=== PATIENT | female | born 1945 | race Caucasian/White ===

== ENCOUNTER 2018-02-23 09:40 | Inpatient (IN) ==
[2018-02-23 10:51] VITALS: BMI 34.3
[2018-02-23] MEDS ORDERED: ATROPINE SULFATE PFS IVP PRN (11:36)
[2018-02-23] MEDS ORDERED: NITROSTAT SL PRN (11:36)
[2018-02-23] MEDS ORDERED: TYLENOL PO PRN (11:36)
[2018-02-23] MEDS ORDERED: MORPHINE 4 MG/ML VIAL IVP PRN (11:36)
[2018-02-23] MEDS ORDERED: VISTARIL INJ IM PRN (11:36)
[2018-02-23] MEDS ORDERED: TORADOL IVP PRN (11:42)
[2018-02-23] MEDS ORDERED: TORADOL IVP STA (11:42)
[2018-02-23] MEDS ORDERED: LASIX IVP STA (11:45)
[2018-02-23] MEDS: PROTONIX PO SCH ×2 (12:07→16:17)
[2018-02-23] MEDS: COZAAR PO SCH (12:07)
[2018-02-23] MEDS: K-DUR PO SCH (12:07)
[2018-02-23] MEDS ORDERED: ESZOPICLONE 2 MG PO PRN (12:50)
[2018-02-23] MEDS: ROCEPHIN 1 GM in SODIUM CHLORIDE 50 ML IV SCH (13:19)
--- NOTE | 2018-02-23 14:44 | DI ---
EXAM: Chest one view, frontal view only. HISTORY: Shortness of breath. Chest pain. COMPARISON: None available. FINDINGS: The heart size is at the upper limits of normal. There is no pulmonary vascular congestio n. The lungs are clear. No pleural effusion or pneumothorax is seen. No acute osseous abnormality is identified. IMPRESSION: No acute cardiopulmonary process.
[2018-02-23] MEDS: FLONASE NAS SCH (20:11)
[2018-02-23] MEDS ORDERED: ESZOPICLONE PO SCH (21:00)
[2018-02-23] MEDS ORDERED: LUNESTA PO PRN (21:00)
[2018-02-24] MEDS: PROTONIX PO SCH ×2 (05:52→16:59)
[2018-02-24] MEDS: LASIX IVP SCH (05:52)
[2018-02-24] MEDS: SYNTHROID PO SCH (05:53)
[2018-02-24] MEDS ORDERED: ASPIRIN EC PO SCH (08:00)
[2018-02-24] MEDS: FLONASE NAS SCH ×2 (08:25→20:06)
[2018-02-24] MEDS: LEXAPRO PO SCH (08:26)
[2018-02-24] MEDS: COZAAR PO SCH (08:26)
[2018-02-24] MEDS: TOPROL XL PO SCH (08:26)
[2018-02-24] MEDS: K-DUR PO SCH ×2 (08:26→16:59)
[2018-02-24] MEDS: ASPIRIN EC PO SCH (08:26)
[2018-02-24] MEDS ORDERED: BETAMETHASONE VALERATE 0.1% TP SCH (09:00)
[2018-02-24] MEDS ORDERED: CRESTOR PO SCH (09:00)
[2018-02-24] MEDS ORDERED: ASPIRIN PO SCH (09:00)
[2018-02-24] MEDS ORDERED: NON-FORMULARY MEDICATION (Rosuvastatin Calcium [Crestor] 1 TAB) PO SCH (09:00)
[2018-02-24] MEDS ORDERED: LASIX TAB PO SCH (09:00)
[2018-02-24] MEDS ORDERED: ZETIA PO SCH (09:00)
[2018-02-24] MEDS ORDERED: ESCITALOPRAM OXALATE PO SCH (09:00)
[2018-02-24] MEDS: ROCEPHIN 1 GM in SODIUM CHLORIDE 50 ML IV SCH (09:09)
[2018-02-24] MEDS ORDERED: AMBIEN PO PRN (12:51)
--- NOTE | 2018-02-24 12:52 | PCM.PROG ---
Attending Provider: ATTENDING PROVIDER: Dr. PORSCHE AGRAWAL This patient is seen with Cece Valadez, Nurse Practitioner. DATE OF SERVICE: 02/24/18 SUBJECTIVE: This 72 year old WHITE/ F was hospitalized 02/23/18. The patient is lying in bed, alert. She states she rested well. She is still very weak, short of breath with exertion. REVIEW OF SYSTEMS: CONSTITUTIONAL: No night sweats. No fatigue, malaise, lethargy. No fever or chills. HEENT: Eyes: No visual changes. No eye pain. No eye discharge. ENT: No runny nose. No epistaxis. No sinus pain. No odynophagia. No congestion. RESPIRATORY: Shortness of breath on exertion. No cough, no congestion. No hemoptysis. CARDIOVASCULAR: No angina symptoms. No CHF symptoms. No atypical chest pain for CAD. No palpitations. No orthopnea.. GASTROINTESTINAL: No abdominal pain. No nausea or vomiting. No diarrhea or constipation. No hematemesis. No hematochezia. GENITOURINARY: No urgency. No frequency. No dysuria. No hematuria. No obstructive symptoms. No discharge. No pain. No significant abnormal bleeding. MUSCULOSKELETAL: No musculoskeletal pain; no joint swelling. NEUROLOGICAL: Awake, alert, oriented to time, place and person. No headache. No neck pain. No syncope. No seizures. No dizziness. PSYCHIATRIC: Not anxious. No depression. No suicidal thoughts. No homicidal thoughts. SKIN: Trace leg edema. No rash. No lesions. No wounds. ENDOCRINE: No unexplained weight loss. No weight gain. HEMATOLOGIC/LYMPHATIC: No anemia. No purpura. No petechiae. No prolonged or excessive bleeding. No palpable lymph nodes. PHYSICAL EXAMINATION: GENERAL: The patient is awake, alert and oriented, lying in bed in no distress. VITAL SIGNS: Temperature 98.6 F, Pulse 66, Respiratory Rate 16, BP 130/73, Pulse Ox 95% HEENT: Head normocephalic, atraumatic. Eyes: Extraocular muscles are intact. Pupils are equal, round and reactive to light and accommodation. Ears: No lesions. Nose appeared normal. Throat: No exudate or erythema. NECK: Supple. No JVD, no carotid bruit. No lymphadenopathy or thyromegaly. LUNGS: Breath sounds clear to auscultation. Percussion note normal. Chest symmetrical. HEART: S1, S2, no S3. Grade I murmur. No cyanosis or clubbing. No ascites. Pulses: Dorsalis pedis and posterior tibial pulses +1 to +2 both sides. ABDOMEN: Soft. Non-tender. Bowel sounds active. No CVA tenderness. No mass felt. EXTREMITIES: Trace bilateral leg edema. Full range of motion of all extremities, equal. NEUROLOGIC: No focal deficit. Cranial nerves II through XII are grossly intact. No headache, no double vision or headache. SKIN: Not dry. Intact. Turgor-normal. LYMPHATIC: No palpable lymph nodes/no lymphedema. MUSCULOSKELETAL: Normal joints with no swelling. Muscle tone is normal. LAB REVIEW: 02/24/18 04:20 02/24/18 04:20 02/24/18 04:20: Sodium 143, Potassium 3.5, Chloride 99, Carbon Dioxide 35 H, Anion Gap 12.5, BUN 32 H, Creatinine 0.78, Estimated GFR (MDRD) 72.00, BUN/ Creatinine Ratio 41.02, Glucose 152 H, Calcium 8.4, Total Bilirubin 0.7, AST 41 H, ALT 94 H D, Alkaline Phosphatase 77, Total Protein 4.5 L, Albumin 2.4 L, Globulin 2.1, Albumin/Globulin Ratio 1.14 02/24/18 04:20: WBC 10.53 H, RBC 4.16 L, Hgb 11.2 L, Hct 34.3 L, MCV 82.5, MCH 26.9 L, MCHC 32.7, RDW Coeff of Bettye 12.9, Plt Count 122 L, Immature Gran % (Auto ) 1.9, Neut % (Auto) 85.8, Lymph % (Auto) 8.1 L, [place] % (Auto) 4.0, Eos % (Auto ) 0.0, Baso % (Auto) 0.2, Immature Gran # (Auto) 0.2, Neut # (Auto) 9.0 H, Lymph # (Auto) 0.9, [place] # (Auto) 0.4, Eos # (Auto) 0.0, Baso # (Auto) 0.0 02/23/18 19:38: Total Creatine Kinase 41, Troponin I 0.0140 02/23/18 16:00: Urine Color Yellow, Urine Clarity Clear, Urine pH 7.0, Ur Specific [place] 1.020, Urine Protein Negative, Urine Glucose (UA) 2+, Urine Ketones Negative, Urine Blood Negative, Urine Nitrite Negative, Urine Bilirubin Negative, Urine Urobilinogen 1.0, Ur Leukocyte Esterase Negative 02/23/18 11:52: Puncture Site R brach, O2 Saturation 96.0, ABG pH 7.56 H*, ABG pCO2 42.0, ABG pO2 74.0 L, ABG HCO3 38 H, ABG Total CO2 39 H, ABG Base Excess 16 H, Mack Test +, O2 Delivery Device Ra, FiO2 % 21.0 02/23/18 11:45: Thyroxine (T4) 7.8 02/23/18 11:45: Sodium 142, Potassium 3.4 L, Chloride 97 L, Carbon Dioxide 37 H , Anion Gap 11.4, BUN 32 H, Creatinine 0.83, Estimated GFR (MDRD) 67.00, BUN/ Creatinine Ratio 38.55, Glucose 194 H, Calcium 9.0, Total Bilirubin 0.9, AST 24 , ALT 55, Alkaline Phosphatase 77, Total Creatine Kinase 45, Troponin I 0.0190, Total Protein 5.1 L, Albumin 2.8 L, Globulin 2.3, Albumin/Globulin Ratio 1.22, TSH 0.055 L 02/23/18 11:45: WBC 13.59 H, RBC 4.63, Hgb 12.5, Hct 38.4, MCV 82.9, MCH 27.0, MCHC 32.6, RDW Coeff of Bettye 13.0, Plt Count 148, Immature Gran % (Auto) 1.7, Neut % (Auto) 88.3, Lymph % (Auto) 6.3 L, [place] % (Auto) 3.6, Eos % (Auto) 0.0, Baso % (Auto) 0.1, Immature Gran # (Auto) 0.2, Neut # (Auto) 12.0 H, Lymph # ( Auto) 0.9, [place] # (Auto) 0.5, Eos # (Auto) 0.0, Baso # (Auto) 0.0 ASSESSMENT: 1. SHORTNESS OF BREATH 2. LEG EDEMA - IMPROVING 3. GENERALIZED WEAKNESS 4. CHEST PAIN - APPEARS TO BE ATYPICAL 5. UTI PLAN: 1. Urine culture pending 2. Continue IV Lasix today Plan and coordination of the patient's care discussed in the presence of Jig Mill Operator and nurse CONDITION: Stable SCRIBED BY: CARO GREEN Coordinator Of Genetic Services scribed while in presence of service performed by Dr. Agrawal/Cece Valadez APRN on 02/24/18 ([id number])
--- NOTE | 2018-02-24 13:25 | RS.PTINEVL ---
Subjective - Patient information Date of Evaluation: 02/24/18 Date of Arrival on Unit: 02/23/18 Admitted From:: Home Diagnosis: SOB, LE edema, general weakness, chest pain Usual Living Arrangement: With Spouse Living Arrangement Comments: raising 3 great grandchildren (2 and 3 yrs old) Home Environment: House, Stairs (few) (pt reports has "big" steps at home) Medical History: Hypertension, CHF Medical History Comments:: hypothyroidism, anemia, depression, CAD, Vit B12 deficient, LATEX ALLERGY?: No Surgical History: Lumbar Spine Medications: see chart Subjective Information/ Patient Comments:: pt states she is under a lot of stress at this time due to family issues. Reports she has irregular heart rate and MD told her stress makes it worse. 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, Drive, Participated in Social Activities Outside home Current Level of Function: Partially Dependent Interventions - Objective Patient Orientation: Person, Place, Time, Situation Current Interventions: IV's, Telemetry Range of Motion - ROM Right Upper Extremity AROM: WFL's Left Upper Extremity AROM: Slight limitation (decreased L shld flex) Right Lower Extremity AROM: WFL's Left Lower Extremity AROM: WFL's Muscle Strength - Muscle Strength Right Upper Extremity Strength: Mild Weakness (shld flex 4/5, elbow flex/ext 4+/ 5) Left Upper Extremity Strength: Mild Weakness (shld flex 4-/5, elbow flex/ext 4+/ 5) Right Lower Extremity Strength: Mild Weakness (hip flex 4/5, knee flex/ext 4/5, ankle Df/PF 4/5) Left Lower Extremity Strength: Mild Weakness (hip flex 4/5, knee flex/ext 4/5, ankle Df/PF 4/5) Sensation - Sensation Right Upper Extremity Sensation: Intact/Normal Left Upper Extremity Sensation: Intact/Normal Right Lower Extremity Sensation: Intact/Normal Left Lower Extremity Sensation: Intact/Normal Palpation Palpation Findings: None/Normal Balance - Sitting Balance and Reactions Static Sitting Balance: Good Dynamic Sitting Balance: Fair Sitting Equilibrium Reactions: Delayed Left, Delayed Right Sitting Protective Reactions: Delayed Left, Delayed Right - Standing Balance and Reactions Static Standing Balance: Fair Dynamic Standing Balance: Poor Standing Equilibrium Reactions: Delayed Left, Delayed Right Standing Protective Reactions: Delayed Left, Delayed Right - Comments Balance Assessment Comments: pt with increased lat sway with amb, occasional scissoring. Functional Mobility - Bed Mobility Rolling R/L: Independent Supine to Sit: CGA Sit to Supine: CGA - Transfers Sit to Stand: CGA Stand to Sit: CGA - Safety Awareness Safety Awareness: Good KRISTIN INDEX SCORE: n/a Ambulation - Ambulation Assistive Device Used: Rolling Walker Orthotic/Prosthetic Device: No Distance: 140ft Assistance needed with Ambulation: CGA, Min Assist Quality of Ambulation: pt required 3 standing rest periods during amb. Gait Deviations: Forward posture, Short stride Ambulation Comments: pt with increased lat sway, flexed posture, deviates from path due to weakness. Factors Affecting Ambulation: Decreased Balance, Breathing/O2 Saturation, Weakness, Decreased Coordination, Decreased Safety, Limited Endurance Treatment time - Time with patient Total treatment time: 26 Patient Education - Education Patient Education: Activity Modification, Education of Plan of Care Teaching Recipient: Patient Teaching Methods: Discussion Comments: discussion with patient regarding hx of L shld pain as well as POC as well as safety with amb. Advised pt that she is safer to amb with rwx to ensure safety with amb. Assessment - Assessment Problem List:: Decreased level of function, Requires training/education, Decreased safety/Risk of falls, Weakness Rehab Potential: Good Further Therapy Indicated?: Yes Comments: Feel pt would be a good candidate for continued PT in swing bed due to pt prior level of function and goal and motivation to return home. Evaluation Complexity: HISTORY: Medium (CHF, CAD, hypothyroid), EXAM OF BODY SYSTEMS: Medium (endurance, gait, balance, posture, transfers), CLINICAL PRESENTATION: Medium (evolving), CLINICAL DECISION MAKING: Medium Short Term Goals GOAL #1: pt independent with rolling and scooting up in bed Goal to be met by: 02/27/18 GOAL #2: pt transfer sup to/from sit to/from stand CGA Goal to be met by: 02/27/18 GOAL #3: pt amb 140ft with rwx with no rest periods with improved posture CGA Goal to be met by: 02/27/18 Penitentiary Goals GOAL #1: Transfer sup to/from sit to/from stand independently Goal to be met by: 03/02/18 GOAL #2: pt amb functional household distance with/without AD SBA with no LOB Goal to be met by: 03/02/18 GOAL #3: Improve BLE strength to 4+/5, 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 R 26.81 balance impaired Has the Physician been added for Co-signature?: Yes
[2018-02-25] MEDS: PROTONIX PO SCH ×2 (06:04→17:10)
[2018-02-25] MEDS: LASIX IVP SCH (06:04)
[2018-02-25] MEDS: SYNTHROID PO SCH (06:04)
[2018-02-25] MEDS: LEXAPRO PO SCH (09:30)
[2018-02-25] MEDS: ASPIRIN EC PO SCH (09:30)
[2018-02-25] MEDS: COZAAR PO SCH (09:30)
[2018-02-25] MEDS: WELLBUTRIN XL PO SCH (09:31)
[2018-02-25] MEDS: K-DUR PO SCH ×2 (09:31→17:10)
[2018-02-25] MEDS: FLONASE NAS SCH ×2 (09:31→20:30)
[2018-02-25] MEDS: TOPROL XL PO SCH (09:31)
[2018-02-25] MEDS: ROCEPHIN 1 GM in SODIUM CHLORIDE 50 ML IV SCH (09:31)
--- NOTE | 2018-02-25 14:30 | PN ---
DATE OF VISIT: 02/24/18 Ana Maria Pate, 72 year old white female, hospitalized with leg edema, generalized weakness, chest pain. The patient has no evidence of any coronary insufficiency or acute myocardial event. The patient is in sinus rhythm. The leg edema has subsided. Her breath is somewhat better. She is being treated for urinary tract infection. CVS: S1, S2. LUNGS: Clear. ABDOMEN: Soft. Bowel sounds are active. The patient was seen and examined with the nurse practitioner. The patient has been put on potassium supplements for hypokalemia. CONDITION: Stable and improving. MTDD
[2018-02-25] MEDS: LUNESTA PO PRN (20:30)
[2018-02-25] MEDS ORDERED: NON-FORMULARY MEDICATION PO SCH (21:00)
[2018-02-26] MEDS: PROTONIX PO SCH ×2 (05:41→17:18)
[2018-02-26] MEDS: SYNTHROID PO SCH (06:30)
[2018-02-26] MEDS: LASIX IVP SCH (06:31)
[2018-02-26] MEDS: ASPIRIN EC PO SCH (08:27)
[2018-02-26] MEDS: K-DUR PO SCH ×2 (08:27→17:18)
[2018-02-26] MEDS: ROCEPHIN 1 GM in SODIUM CHLORIDE 50 ML IV SCH (09:39)
[2018-02-26] MEDS: TOPROL XL PO SCH (09:44)
[2018-02-26] MEDS: COZAAR PO SCH (09:44)
[2018-02-26] MEDS: WELLBUTRIN XL PO SCH (09:44)
[2018-02-26] MEDS: LEXAPRO PO SCH (09:44)
[2018-02-26] MEDS: FLONASE NAS SCH ×2 (09:45→20:48)
[2018-02-26] MEDS: LUNESTA PO PRN (20:48)
[2018-02-27] MEDS: LASIX IVP SCH (05:59)
[2018-02-27] MEDS: PROTONIX PO SCH ×2 (06:02→17:18)
[2018-02-27] MEDS: SYNTHROID PO SCH (06:03)
[2018-02-27] MEDS: ROCEPHIN 1 GM in SODIUM CHLORIDE 50 ML IV SCH (08:51)
[2018-02-27] MEDS: FLONASE NAS SCH ×2 (08:52→20:34)
[2018-02-27] MEDS: ASPIRIN EC PO SCH (08:53)
[2018-02-27] MEDS: LEXAPRO PO SCH (08:54)
[2018-02-27] MEDS: COZAAR PO SCH (08:54)
[2018-02-27] MEDS: K-DUR PO SCH ×2 (08:55→17:18)
[2018-02-27] MEDS: TOPROL XL PO SCH (08:55)
[2018-02-27] MEDS: WELLBUTRIN XL PO SCH (08:55)
[2018-02-27] MEDS ORDERED: TORADOL IVP STA (17:48)
[2018-02-27] MEDS ORDERED: DECADRON 4 MG/ML SDV IVP STA (17:48)
[2018-02-27] MEDS ORDERED: XANAX PO STA (17:48)
[2018-02-27] MEDS: LUNESTA PO PRN (22:51)
[2018-02-28] MEDS: LASIX TAB PO SCH (05:40)
[2018-02-28] MEDS: PROTONIX PO SCH ×2 (05:40→16:41)
[2018-02-28] MEDS: SYNTHROID PO SCH (05:40)
[2018-02-28] MEDS ORDERED: DECADRON 4 MG/ML SDV IM STA (08:46)
[2018-02-28] MEDS: FLONASE NAS SCH ×2 (08:53→21:03)
[2018-02-28] MEDS: COZAAR PO SCH (08:54)
[2018-02-28] MEDS: TOPROL XL PO SCH (08:54)
[2018-02-28] MEDS: K-DUR PO SCH ×2 (08:54→16:41)
[2018-02-28] MEDS: ASPIRIN EC PO SCH (08:54)
[2018-02-28] MEDS: WELLBUTRIN XL PO SCH (08:54)
[2018-02-28] MEDS: ROCEPHIN 1 GM in SODIUM CHLORIDE 50 ML IV SCH (08:55)
[2018-02-28] MEDS: LEXAPRO PO SCH (08:55)
--- NOTE | 2018-02-28 09:32 | PCM.PROG ---
Attending Provider: ATTENDING PROVIDER: Dr. PORSCHE AGRAWAL This patient is seen with Cece Valadez, Nurse Practitioner. DATE OF SERVICE: 02/28/18 SUBJECTIVE: This 72 year old WHITE/ F was hospitalized 02/23/18. The patient is lying in bed, alert. Left shoulder has been bothering her. Left shoulder was dislocated 3 to 4 months ago. Right knee has been numb along with right hip. The patient has history of back surgery. Weakness slightly improved. REVIEW OF SYSTEMS: CONSTITUTIONAL: No night sweats. No fatigue, malaise, lethargy. No fever or chills. HEENT: Eyes: No visual changes. No eye pain. No eye discharge. ENT: No runny nose. No epistaxis. No sinus pain. No odynophagia. No congestion. RESPIRATORY: No cough, no congestion. No hemoptysis. No shortness of breath. CARDIOVASCULAR: No angina symptoms. No CHF symptoms. No atypical chest pain for CAD. No palpitations. No orthopnea.. GASTROINTESTINAL: No abdominal pain. No nausea or vomiting. No diarrhea or constipation. No hematemesis. No hematochezia. GENITOURINARY: No urgency. No frequency. No dysuria. No hematuria. No obstructive symptoms. No discharge. No pain. No significant abnormal bleeding. MUSCULOSKELETAL: Left shoulder pain and weakness. NEUROLOGICAL: Awake, alert, oriented to time, place and person. No headache. No neck pain. No syncope. No seizures. No dizziness. PSYCHIATRIC: Not anxious. No depression. No suicidal thoughts. No homicidal thoughts. SKIN: No rash. No lesions. No wounds. ENDOCRINE: No unexplained weight loss. No weight gain. HEMATOLOGIC/LYMPHATIC: No anemia. No purpura. No petechiae. No prolonged or excessive bleeding. No palpable lymph nodes. PHYSICAL EXAMINATION: GENERAL: The patient is awake, alert and oriented, lying in bed in no distress. VITAL SIGNS: Temperature 97.5 F, Pulse 58, Respiratory Rate 14, BP 129/72, Pulse Ox 98% HEENT: Head normocephalic, atraumatic. Eyes: Extraocular muscles are intact. Pupils are equal, round and reactive to light and accommodation. Ears: No lesions. Nose appeared normal. Throat: No exudate or erythema. NECK: Supple. No JVD, no carotid bruit. No lymphadenopathy or thyromegaly. LUNGS: Clear to auscultation. Percussion note normal. Chest symmetrical. HEART: S1, S2, no S3. No murmurs. No cyanosis or clubbing. No ascites. Pulses: Dorsalis pedis and posterior tibial pulses +1 to +2 both sides. ABDOMEN: Soft. Non-tender. Bowel sounds active. No CVA tenderness. No mass felt. EXTREMITIES: Trace bilateral lower extremity edema. Full range of motion of all extremities, equal. NEUROLOGIC: No focal deficit. Cranial nerves II through XII are grossly intact. No headache, no double vision or headache. SKIN: Not dry. Intact. Turgor-normal. LYMPHATIC: No palpable lymph nodes/no lymphedema. MUSCULOSKELETAL: Normal joints with no swelling. Muscle tone is normal. LAB REVIEW: 02/28/18 04:15 02/28/18 04:15 02/28/18 04:15: Sodium 139, Potassium 3.8, Chloride 98, Carbon Dioxide 37 H, Anion Gap 7.8, BUN 25 H, Creatinine 0.79, Estimated GFR (MDRD) 71.00, BUN/ Creatinine Ratio 31.64, Glucose 171 H, Calcium 8.4, Total Bilirubin 0.6, AST 23 , ALT 60, Alkaline Phosphatase 76, Total Protein 4.1 L, Albumin 2.3 L, Globulin 1.8, Albumin/Globulin Ratio 1.28 02/28/18 04:15: WBC 10.17, RBC 4.12 L, Hgb 11.0 L, Hct 33.4 L, MCV 81.1, MCH 26.7 L, MCHC 32.9, RDW Coeff of Bettye 13.2, Plt Count 111 L, Immature Gran % (Auto ) 2.1, Neut % (Auto) 86.0, Lymph % (Auto) 8.0 L, [place] % (Auto) 3.8, Eos % (Auto ) 0.0, Baso % (Auto) 0.1, Immature Gran # (Auto) 0.2, Neut # (Auto) 8.8 H, Lymph # (Auto) 0.8, [place] # (Auto) 0.4, Eos # (Auto) 0.0, Baso # (Auto) 0.0 ASSESSMENT: 1. SHORTNESS OF BREATH, RESOLVED 2. LEG EDEMA - IMPROVING 3. GENERALIZED WEAKNESS 4. CHEST PAIN - APPEARS TO BE ATYPICAL 5. UTI 6. LEFT SHOULDER PAIN 7. RIGHT KNEE PAIN AND WEAKNESS PLAN: 1. 1 cc Decadron left shoulder 2. CT L-spine without 3. X-ray right hip and knee Plan and coordination of the patient's care discussed in the presence of Hair Dresser and nurse. CONDITION: Stable SCRIBED BY: CARO GREEN Border Guard scribed while in presence of service performed by Dr. Agrawal/Cece Valadez APRN on 02/28/18 ([id number])
--- NOTE | 2018-02-28 10:57 | DI ---
EXAM: Radiographs, right hip HISTORY: Right hip pain. COMPARISON: None available. TECHNIQUE: Two views. FINDINGS: Bone mineralization is decreased. There is no fracture or dislocation. Mild right hip marah int space narrowing and marginal osteophyte formation noted. No focal soft tissue abnormality is see n. IMPRESSION: Mild osteoarthritis.
--- NOTE | 2018-02-28 11:00 | DI ---
EXAM: Radiographs, right knee HISTORY: Right knee pain and numbness. COMPARISON: None available. TECHNIQUE: Four views. FINDINGS: Bone mineralization is decreased. No fracture or dislocation identified. Moderate medial compartment joint space narrowing noted. Moderate tricompartmental marginal osteophyte formation is present. Intra-articular loose bodies suspected. No erosions are seen. Diffuse subcutaneous edema is present. IMPRESSION: Moderate osteoarthritis.
--- NOTE | 2018-02-28 11:03 | CT ---
EXAM: CT lumbar spine without contrast HISTORY: Low back pain, history of lumbar surgery COMPARISON: MRI 08/02/2015 TECHNIQUE: CT lumbar spine performed without intravenous contrast. Coronal and sagittal reformatted images obtained. FINDINGS: Vertebral bodies normal in height. No fracture. Multilevel marginal osteophyte formation . Multilevel intervertebral disc space narrowing with severe intervertebral space narrowing L5-S1. Multilevel facet arthrosis. Approximately 2 mm anterolisthesis of L2 on, L3, L3 on L4, and L4 on L5. Sacroiliac joints intact with mild degenerative change. Unilocular cystic lesion in the left ovary measuring 1.7 cm. Colonic diverticulosis. Atherosclerosis. T12-L1: No central canal or neural foraminal narrowing. L1-L2: No central canal or neural foraminal narrowing. L2-L3: Posterior disc and complex and facet arthrosis causing moderate central canal and mild to mod erate bilateral neural foraminal narrowing. L3-L4: Posterior disc osteophyte complex and facet arthrosis causing moderate to severe central sunny l narrowing and moderate bilateral neural foraminal narrowing. L4-L5: Posterior disc osteophyte complex and facet arthrosis causing mild central canal and mild bila teral neural foraminal narrowing. L5-S1: Posterior disc osteophyte complex and facet arthrosis causing mild bilateral neural foraminal narrowing. IMPRESSION: 1. Chronic discogenic degenerative disease and facet arthrosis. Please see segmental analysis, noti ng central canal and neural foraminal narrowing. MRI can be performed for further evaluation. 2. Unilocular cystic lesion in the left ovary measuring 1.7 cm, considered enlarged in a postmenopaus al patient. Recommend correlation with pelvic ultrasound.
--- NOTE | 2018-02-28 13:09 | PN ---
DATE OF SERVICE: 02/25/18 SUBJECTIVE: The patient is hospitalized with fluid retention, shortness of breath, urinary tract infection. She says she is feeling somewhat better. She still has a lot of stress that is affecting her and wants more medications for stress or anxiety. The patient is already on Lexapro. Will add Wellbutrin 150 mg daily. The patient's BMI is 34. The patient is strongly advised to join Cardiac Rehab, lose weight, do daily exercise. REVIEW OF SYSTEMS: CONSTITUTIONAL: No night sweats. No fatigue, malaise, lethargy. No fever or chills. HEENT: Eyes: No visual changes. No eye pain. No eye discharge. ENT: No runny nose. No epistaxis. No sinus pain. No sore throat. No odynophagia. No congestion. RESPIRATORY: No cough, no congestion. No hemoptysis. No shortness of breath. CARDIOVASCULAR: No angina symptoms. No CHF symptoms. No atypical chest pain for CAD. No palpitations. No orthopnea. GASTROINTESTINAL: No abdominal pain. No nausea or vomiting. No diarrhea or constipation. No hematemesis. No hematochezia. GENITOURINARY: No urgency. No frequency. No dysuria. No hematuria. No obstructive symptoms. No discharge. No pain. No significant abnormal bleeding. MUSCULOSKELETAL: No musculoskeletal pain; no joint swelling. NEUROLOGICAL: No headache. No neck pain. No syncope. No seizures. No dizziness. PSYCHIATRIC: Not anxious. No depression. No suicidal thoughts. No homicidal thoughts. SKIN: No rash. No lesions. No wounds. ENDOCRINE: No unexplained weight loss. No weight gain. HEMATOLOGIC/LYMPHATIC: No anemia. No purpura. No petechiae. No prolonged or excessive bleeding. No palpable lymph nodes. PHYSICAL EXAMINATION: GENERAL: The patient is oriented to time, place and person. VITAL SIGNS: Temperature 97.9, pulse 64, respiratory rate 16, BP 134/78, pulse ox 97%. HEENT: Head normocephalic, atraumatic. Eyes: Extraocular muscles are intact. Pupils are equal, round and reactive to light and accommodation. Ears: No lesions. Nose appeared normal. Throat: No exudate or erythema. NECK: Supple. No JVD, no carotid bruit. No lymphadenopathy or thyromegaly. LUNGS: Decreased breath sounds but clear to auscultation. Percussion note normal. Chest symmetrical. HEART: S1, S2, no S3. No murmurs. No cyanosis or clubbing. No ascites. Pulses: Dorsalis pedis and posterior tibial pulses +1 to +2 both sides. ABDOMEN: Soft. Nontender. Bowel sounds active. No CVA tenderness. No mass felt. EXTREMITIES: No edema. Full range of motion of all extremities, equal. NEUROLOGIC: No focal deficit. Cranial nerves II through XII are grossly intact. No headache, no double vision or headache. SKIN: Not dry. Intact. Turgor - normal. LYMPHATIC: No palpable lymph nodes/no lymphedema. MUSCULOSKELETAL: Normal joints with no swelling. Muscle tone is normal. LABS: Hemoglobin 11.9, hematocrit 36, WBC 1,000, normal differential. Creatinine 0.7, BUN 32, potassium 4. ASSESSMENT: 1. LEG EDEMA 2. EARLY CHF SEEMS TO HAVE RESOLVED 3. UTI UNDER TREATMENT SEEMS TO BE HELPING 4. DEPRESSION - MAY NEED WELLBUTRIN 150 ALONG WTIH LEXAPRO PLAN: The patient is advised to do daily exercise, advised to lose weight. She has sedentary lifestyle. No suicidal or homicidal tendancies. The patient is intelligent. TIME SPENT: More than 30 minutes. Plan and coordination of the patient's care discussed in the presence of nurse. [place]
--- NOTE | 2018-02-28 13:18 | PN ---
DATE OF SERVICE: 02/26/18 SUBJECTIVE: The patient was hospitalized with fluid retention, possibility of CHF, also had urinary tract infection. The patient is being treated for urinary tract infection. She is afebrile, feeling better. Her depression seems to be somewhat under control but may need Wellbutrin which was added 150 mg p.o. daily along with Lexapro. The patient has a lot of stress at home. No suicidal or homicidal tendancies. She has to take care of her and also grandkids. The patient is overweight and has multiple risk factors for coronary artery disease. REVIEW OF SYSTEMS: CONSTITUTIONAL: No night sweats. No fatigue, malaise, lethargy. No fever or chills. HEENT: Eyes: No visual changes. No eye pain. No eye discharge. ENT: No runny nose. No epistaxis. No sinus pain. No sore throat. No odynophagia. No congestion. RESPIRATORY: No cough, no congestion. No hemoptysis. No shortness of breath. CARDIOVASCULAR: No angina symptoms. No CHF symptoms. No atypical chest pain for CAD. No palpitations. No PND. No orthopnea. GASTROINTESTINAL: Appetite is improving. No abdominal pain. No nausea or vomiting. No diarrhea or constipation. No hematemesis. No hematochezia. GENITOURINARY: No urgency. No frequency. No dysuria. No hematuria. No obstructive symptoms. No discharge. No pain. No significant abnormal bleeding. MUSCULOSKELETAL: No musculoskeletal pain; no joint swelling. NEUROLOGICAL: The patient is oriented to time, place and person. No headache. No neck pain. No syncope. No seizures. No dizziness. PSYCHIATRIC: Not anxious. No depression. No suicidal thoughts. No homicidal thoughts. SKIN: No rash. No lesions. No wounds. ENDOCRINE: No unexplained weight loss. No weight gain. HEMATOLOGIC/LYMPHATIC: No anemia. No purpura. No petechiae. No prolonged or excessive bleeding. No palpable lymph nodes. PHYSICAL EXAMINATION: HEENT: Head normocephalic, atraumatic. Eyes: Extraocular muscles are intact. Pupils are equal, round and reactive to light and accommodation. Ears: No lesions. Nose appeared normal. Throat: No exudate or erythema. NECK: Supple. No JVD, no carotid bruit. No lymphadenopathy or thyromegaly. LUNGS: Clear to auscultation. Percussion note normal. Chest symmetrical. HEART: S1, S2, no S3. No murmurs. No cyanosis or clubbing. No ascites. Pulses: Dorsalis pedis and posterior tibial pulses +1 to +2 both sides. ABDOMEN: Soft. Nontender. Bowel sounds active. No CVA tenderness. No mass felt. EXTREMITIES: Trace edema. Full range of motion of all extremities, equal. NEUROLOGIC: No focal deficit. Cranial nerves II through XII are grossly intact. No headache, no double vision or headache. SKIN: Not dry. Intact. Turgor - normal. LYMPHATIC: No palpable lymph nodes/no lymphedema. MUSCULOSKELETAL: Normal joints with no swelling. Muscle tone is normal. ASSESSMENT: 1. CHF SEEMS TO HAVE RESOLVED 2. CARDIOVASCULAR STATUS STABLE 3. DEPRESSION WHICH IS BEING TREATED WITH LEXAPRO AND NOW WITH WELLBUTRIN. NO SUICIDAL OR HOMICIDAL TENDANCIES. EDUCATION: THE SIDE EFFECTS OF WELLBUTRIN DISCUSSED WITH THE PATIENT IN DETAIL. IF DETERIORATION OF DEPRESSION WITH HOMICIDAL OR SUICIDAL TENDANCY WITH WELLBUTRIN. ADVISED HER TO STOP IT AND GO TO THE EMERGENCY ROOM TO LET ME KNOW. THE PATIENT IS STRONGLY ADVISED TO LOSE WEIGHT, AT LEAST 20 TO 30 LBS. ALSO ADVISED TO JOIN CARDIAC REHAB. CONDITION: Stable. TIME SPENT: More than 30 minutes. Plan and coordination of the patient's care discussed in the presence of nurse. THEODORE
--- NOTE | 2018-02-28 13:28 | PN ---
DATE OF SERVICE: 02/27/18 SUBJECTIVE: The patient is doing well, up and about, feeling better. She has some arthritic pain in the knee and shoulder for which she was given Toradol IV along with 1 cc Decadron. The patient is continued on Lexapro and Wellbutrin. REVIEW OF SYSTEMS: CONSTITUTIONAL: No night sweats. No fatigue, malaise, lethargy. No fever or chills. HEENT: Eyes: No visual changes. No eye pain. No eye discharge. ENT: No runny nose. No epistaxis. No sinus pain. No sore throat. No odynophagia. No congestion. RESPIRATORY: No cough, no congestion. No hemoptysis. No shortness of breath. CARDIOVASCULAR: No angina symptoms. No CHF symptoms. No atypical chest pain for CAD. No palpitations. No orthopnea. GASTROINTESTINAL: No abdominal pain. No nausea or vomiting. No diarrhea or constipation. No hematemesis. No hematochezia. GENITOURINARY: No urgency. No frequency. No dysuria. No hematuria. No obstructive symptoms. No discharge. No pain. No significant abnormal bleeding. MUSCULOSKELETAL: Arthritic pain in knee and shoulder. NEUROLOGICAL: No headache. No neck pain. No syncope. No seizures. No dizziness. PSYCHIATRIC: Not anxious. No depression. No suicidal thoughts. No homicidal thoughts. SKIN: No rash. No lesions. No wounds. ENDOCRINE: No unexplained weight loss. No weight gain. HEMATOLOGIC/LYMPHATIC: No anemia. No purpura. No petechiae. No prolonged or excessive bleeding. No palpable lymph nodes. PHYSICAL EXAMINATION: HEENT: Head normocephalic, atraumatic. Eyes: Extraocular muscles are intact. Pupils are equal, round and reactive to light and accommodation. Ears: No lesions. Nose appeared normal. Throat: No exudate or erythema. NECK: Supple. No JVD, no carotid bruit. No lymphadenopathy or thyromegaly. LUNGS: Clear to auscultation. Percussion note normal. Chest symmetrical. HEART: S1, S2, no S3. No murmurs. No cyanosis or clubbing. No ascites. Pulses: Dorsalis pedis and posterior tibial pulses +1 to +2 both sides. ABDOMEN: Soft. Nontender. Bowel sounds active. No CVA tenderness. No mass felt. EXTREMITIES: No edema. Full range of motion of all extremities, equal. NEUROLOGIC: No focal deficit. Cranial nerves II through XII are grossly intact. No headache, no double vision or headache. SKIN: Not dry. Intact. Turgor - normal. LYMPHATIC: No palpable lymph nodes/no lymphedema. MUSCULOSKELETAL: Normal joints with no swelling. Muscle tone is normal. The patient's cardiovascular status is stable. The patient's leg edema seems to be under control but was more than yesterday when she keeps her legs hanging, that is what happens to her. Will give IV Lasix. From tomorrow we will put her on p.o. Lasix. Advised to cut down on salt. The patient has dependent edema. No symptoms of CHF or coronary insufficiency. Again, advised to join cardiac rehab. ASSESSMENT: 1. LEG EDEMA 2. BORDERLINE CHF SEEMS TO BE UNDER CONTROL 3. CORONARY ARTERY DISEASE, STABLE 4. CARDIOVASCULAR STATUS 5. UTI SEEMS TO HAVE RESOLVED 6. DEPRESSION SEEMS TO BE SOMEWHAT UNDER CONTROL - THE PATIENT DECLINED ANY PSYCHIATRIC EVALUATION OR PSYCHOTHERAPY. SHE SAYS PSYCHOTHERAPY IS HER WORK AND TO TAKE CARE OF HER GRAND KIDS. NO SUICIDAL OR HOMICIDAL TENDENCIES OR IDEAS. THE PATIENT'S BEHAVIOR IS NORMAL AND SHE IS INTELLIGENT AND ALSO HOLDS A FULL- TIME JOB. TIME SPENT: More than 30 minutes. Plan and coordination of the patient's care discussed in the presence of nurse. THEODORE
--- NOTE | 2018-02-28 13:37 | RS.OTINEVL ---
Subjective - Patient information Date of Evaluation: 02/28/18 Date of Arrival on Unit: 02/23/18 Admitted From:: Emergency Dept Usual Living Arrangement: With Spouse Living Arrangement Comments: Pt lives at home with her and is trying to rear 3 small children. Pt is very anxious and SOB. Pt has kana of BLE. Pt has decreased energy in the afternoon. Home Environment: House, Stairs (few) Medical History Comments:: Gastrointestinal disorders, diarrhea, depression, UTI , Chest pain, SOA Subjective Information/ Patient Comments:: "I have a left shoulder that just stopped working and my right knee is numb and my hip hurts too. 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 Pt did not use an assistive device prior to admission to the hospital. Current Level of Function: Partially Dependent Current Equipment Used at Home: Cane Pain Assessment - Pain Pain Score: 5 Side: left Pain Location Body Site: Shoulder Pain Aggravating Factors: ADL's, Changing Position Pain Alleviating Factors: Medication Interventions - Objective Patient Orientation: Person, Place, Time, Situation Current Interventions: IV's, Telemetry Observation: Pt is SOA with activity. Interventions - ROM Right Upper Extremity AROM: WFL's Left Upper Extremity AROM: Moderate limitation - Strength Right Upper Extremity Strength: Mild Weakness Left Upper Extremity Strength: Severe Weakness - Sensation Right Upper Extremity Sensation: Intact/Normal Left Upper Extremity Sensation: Intact/Normal Balance - Sitting Balance Static Sitting Balance: Fair Dynamic Sitting Balance: Fair - Standing Balance Static Standing Balance: Fair Dynamic Standing Balance: Fair ADL Skills - Self Feeding Self Feeding: Independent - Grooming Grooming: Min Assist - Bathing Bathing UE: Not Tested Bathing LE: Not Tested - Dressing Dressing UE: Mod Assist Dressing LE: Min Assist - Toilet Management Toileting Management: Independent Functional Mobility - Bed Mobility Rolling R/L: Supervision Scooting: Supervision Supine to Sit: Supervision Sit to Supine: Supervision - Transfers Sit to Stand: Supervision Stand to Sit: Supervision Stand Pivot Transfers: Supervision - Ambulation Weight Bearing Status: FWB Assistive Device Used: Rolling Walker Assistance needed with Ambulation: Supervision - Safety Awareness Safety Awareness: Good KRISTIN INDEX SCORE: . Additional Treatment Performed - Time with patient Total treatment time: 18 Activities Patient Interests:: Watching Television, Visiting/Socializing, Computer/Internet Patient Education Patient Education: Education of diagnosis, Education of Plan of Care Teaching Recipient: Patient Teaching Methods: Discussion Assessment Problem List:: Decreased level of function, Requires training/education, Decreased safety/Risk of falls, Weakness, Pain limits previous level of function Rehab Potential: Good Further Therapy Indicated?: Yes Evaluation Complexity: HISTORY: Medium, EXAM OF BODY SYSTEMS: Medium, CLINICAL DECISION MAKING: Medium Short Term Goals - Goals GOAL 1: Pt to increase activity tolerance to 10 minutes in dyn. std. bal. Goal to be met by: 03/03/18 GOAL 2: Pt to increase BUE strength to 4/5. Goal to be met by: 03/03/18 GOAL 3: Pt to be independent with home program. Goal to be met by: 03/03/18 Privacy Officer Goals GOAL 1: Pt to be independent with ADLS as PLOF. Goal to be met by: 03/07/18 GOAL 2: Pt to increase BUE strength to 4+/5. Goal to be met by: 03/07/18 GOAL 3: Pt to increase dynamic standing to 15 minutes. Goal to be met by: 03/07/18 Plan Plan of Care: Therapeutic EX, Neuromuscular Re-Educ, Therapeutic Activity, Self- Care/Home Management Frequency of Treatment: 1-2 X day, as tolerated Duration of Treatment: 1 Week Anticipated Discharge Destination: Home Treatment Diagnosis (ICD 10 Codes): M62.81 Muscle Weakness Has the Physician been added for Co-signature?: Yes
--- NOTE | 2018-02-28 15:08 | US ---
EXAM: PELVIC ULTRASOUND COMPLETE HISTORY: Unilocular cystic lesion left ovary by CT FINDINGS: Ultrasound pelvis transabdominal. The uterus measured 6.8 x 2.9 x 3.6 cm. centimeters. Myometrium was unremarkable. Endometrial strip e was symmetric and normal thickness at 0.27 centimeters. Ovaries were unable to be seen. No pelvic ascites. IMPRESSION: 1. Unable to visualize ovaries. 2. The uterus and endometrium appeared grossly normal.
[2018-02-28] MEDS: LUNESTA PO PRN (21:17)
[2018-03-01] MEDS: LASIX TAB PO SCH (06:05)
[2018-03-01] MEDS: PROTONIX PO SCH ×2 (06:05→16:35)
[2018-03-01] MEDS: SYNTHROID PO SCH (06:05)
[2018-03-01] MEDS ORDERED: K-DUR PO STA (08:49)
[2018-03-01] MEDS: K-DUR PO SCH ×3 (09:11→16:36)
[2018-03-01] MEDS: KEFLEX PO SCH ×2 (09:16→22:52)
[2018-03-01] MEDS: FLONASE NAS SCH ×2 (09:16→21:11)
[2018-03-01] MEDS: COZAAR PO SCH (09:17)
[2018-03-01] MEDS: WELLBUTRIN XL PO SCH (09:17)
[2018-03-01] MEDS: ASPIRIN EC PO SCH (09:17)
[2018-03-01] MEDS: TOPROL XL PO SCH (09:18)
[2018-03-01] MEDS: LEXAPRO PO SCH (09:18)
[2018-03-01] MEDS ORDERED: VITAMIN B-12 IM STA (15:47)
[2018-03-01] MEDS: LUNESTA PO PRN (21:10)
[2018-03-02] MEDS: SYNTHROID PO SCH (05:51)
[2018-03-02] MEDS: PROTONIX PO SCH (05:51)
[2018-03-02] MEDS: LASIX TAB PO SCH (05:51)
[2018-03-02] MEDS: ASPIRIN EC PO SCH (08:52)
[2018-03-02] MEDS: COZAAR PO SCH (08:53)
[2018-03-02] MEDS: K-DUR PO SCH ×2 (08:53→14:04)
[2018-03-02] MEDS: KEFLEX PO SCH (08:53)
[2018-03-02] MEDS: TOPROL XL PO SCH (08:54)
[2018-03-02] MEDS: WELLBUTRIN XL PO SCH (08:54)
[2018-03-02] MEDS: LEXAPRO PO SCH (08:54)
[2018-03-02] MEDS: FLONASE NAS SCH (08:56)
--- NOTE | 2018-03-02 09:24 | PN ---
DATE OF SERVICE: 02/28/18 SUBJECTIVE: The patient was seen and examined with the Nurse Practitioner. The patient's mood is somewhat better. She is still has mild leg swelling. Her vascular status is stable. She has generalized aches consistent with osteoarthritis. CONDITION: Stable. TIME SPENT: More than 30 minutes. Plan and coordination of the patient's care discussed in the presence of nurse. THEODORE
[2018-03-02 10:15] VITALS: BP 110/54; TEMP 98.4
--- NOTE | 2018-03-02 11:15 | PCM.PROG ---
Attending Provider: ATTENDING PROVIDER: Dr. PORSCHE AGRAWAL DATE OF SERVICE: 03/02/18 SUBJECTIVE: This 72 year old WHITE/ F was hospitalized 02/23/18 with shortness of breath, leg edema, generalized weakness and chest pain. The patient's condition is improved, feeling better. REVIEW OF SYSTEMS: CONSTITUTIONAL: No night sweats. No fatigue, malaise, lethargy. No fever or chills. HEENT: Eyes: No visual changes. No eye pain. No eye discharge. ENT: No runny nose. No epistaxis. No sinus pain. No odynophagia. No congestion. RESPIRATORY: No cough, no congestion. No hemoptysis. No shortness of breath. CARDIOVASCULAR: No angina symptoms. No CHF symptoms. No symptoms of coronary insufficiency. No atypical chest pain for CAD. No palpitations. No orthopnea.. GASTROINTESTINAL: No abdominal pain. No nausea or vomiting. No diarrhea or constipation. No hematemesis. No hematochezia. GENITOURINARY: No urgency. No frequency. No dysuria. No hematuria. No obstructive symptoms. No discharge. No pain. No significant abnormal bleeding. MUSCULOSKELETAL: No musculoskeletal pain; no joint swelling. NEUROLOGICAL: Awake, alert, oriented to time, place and person. No headache. No neck pain. No syncope. No seizures. No dizziness. PSYCHIATRIC: Not anxious. No depression. No suicidal thoughts. No homicidal thoughts. SKIN: No rash. No lesions. No wounds. ENDOCRINE: No unexplained weight loss. No weight gain. HEMATOLOGIC/LYMPHATIC: No anemia. No purpura. No petechiae. No prolonged or excessive bleeding. No palpable lymph nodes. PHYSICAL EXAMINATION: GENERAL: The patient is awake, alert and oriented, sitting in chair in chair in no distress. VITAL SIGNS: Temperature 98.5 F, Pulse 64, Respiratory Rate 18, BP 109/58, Pulse Ox 94% HEENT: Head normocephalic, atraumatic. Eyes: Extraocular muscles are intact. Pupils are equal, round and reactive to light and accommodation. Ears: No lesions. Nose appeared normal. Throat: No exudate or erythema. NECK: Supple. No JVD, no carotid bruit. No lymphadenopathy or thyromegaly. LUNGS: Clear to auscultation. Percussion note normal. Chest symmetrical. HEART: S1, S2, no S3. No murmurs. No cyanosis or clubbing. No ascites. Pulses: Dorsalis pedis and posterior tibial pulses +1 to +2 both sides. ABDOMEN: Soft. Non-tender. Bowel sounds active. No CVA tenderness. No mass felt. EXTREMITIES: Leg edema resolved. Full range of motion of all extremities, equal. NEUROLOGIC: No focal deficit. Cranial nerves II through XII are grossly intact. No headache, no double vision or headache. SKIN: Warm and dry. Intact. Turgor-normal. LYMPHATIC: No palpable lymph nodes/no lymphedema. MUSCULOSKELETAL: Normal joints with no swelling. Muscle tone is normal. LAB REVIEW: 03/02/18 04:30 03/02/18 04:30 03/02/18 04:30: Sodium 145, Potassium 3.3 L, Chloride 101, Carbon Dioxide 39 H, Anion Gap 8.3, BUN 25 H, Creatinine 0.71, Estimated GFR (MDRD) 81.00, BUN/ Creatinine Ratio 35.21, Glucose 157 H, Calcium 8.5, Total Bilirubin 0.6, AST 24 , ALT 61, Alkaline Phosphatase 78, Total Protein 4.3 L, Albumin 2.3 L, Globulin 2.0, Albumin/Globulin Ratio 1.15 03/02/18 04:30: WBC 9.76, RBC 4.04 L, Hgb 11.1 L, Hct 33.5 L, MCV 82.9, MCH 27.5 , MCHC 33.1, RDW Coeff of Bettye 13.7, Plt Count 95 L, Immature Gran % (Auto) 2.0, Neut % (Auto) 86.3, Lymph % (Auto) 6.5 L, Sanders % (Auto) 5.1, Eos % (Auto) 0.0, Baso % (Auto) 0.1, Immature Gran # (Auto) 0.2, Neut # (Auto) 8.4 H, Lymph # ( Auto) 0.6, Sanders # (Auto) 0.5, Eos # (Auto) 0.0, Baso # (Auto) 0.0 03/01/18 04:10: Transferrin 253 03/01/18 04:10: Vitamin B12 223 03/01/18 04:10: Iron 34 L, TIBC 291, % Saturation 12, Unsat Iron Binding 257, Ferritin 23.11, Folate 12.3 03/01/18 04:10: Reticulocyte % (Auto) 1.94, Absolute Retic 0.0857, Retic Hgb Equivalent 37.2 ASSESSMENT: 1. Leg edema resolved. 2. UTI being treated with antibiotics. 3. Depression under control with Wellbutrin and Lexapro. No suicidal or homicidal tendencies. PLAN: 1. The patient will be off Lisinopril and will be on Cozaar. 2. Lasix and potassium to be continued along with rest of the medication. 3. Keep legs elevated when at rest. 4. The patient feels safer with walker and walker recommended due to osteoarthritis of right hip, right knee with gait abnormality. Plan and coordination of the patient's care discussed in the presence of Clip Coater and nurse. CONDITION: STABLE SCRIBED BY: CARO GREEN Business Office Director scribed while in presence of service performed by Dr. PORSCHE AGRAWAL on 03/02/18 ([id number])
--- NOTE | 2018-03-02 12:11 | CM.DICTOOL ---
ADMISSION: 02/23/18 09:40 DISCHARGE: MARCH 02, 2018 DATE OF SERVICE: 03/02/18 FINAL DIAGNOSIS DYSPNEA LEG EDEMA GENERALIZED WEAKNESS CHEST PAIN ACUTE DIASTOLIC CHF (02/13) URINARY TRACT INFECTION (HISTORY) DYSLIPIDEMIA HYPOTHYROID ANEMIA DEPRESSION VITAMIN B12 DEFICIENCY OSTEOARTHRITIS LUMBAR SURGERY LAST VITALS Temp Pulse Resp BP Pulse Ox 98.4 F 63 18 110/54 L 94 L 03/02/18 10:00 03/02/18 10:00 03/02/18 10:00 03/02/18 10:00 03/02/18 10:00 TAKE THESE MEDICATIONS AT HOME Aspirin (Aspirin Ec) 325 mg PO DAILYWM [facility] Last Admin: 03/02/18 08:52 Dose: 325 mg Bupropion HCl (Wellbutrin Xl) 150 mg PO DAILY [facility] Last Admin: 03/02/18 08:54 Dose: 150 mg Cephalexin (Keflex) 500 mg PO Q12HR [facility] Last Admin: 03/02/18 08:53 Dose: 500 mg Ezetimibe (Zetia) 10 mg PO DAILY [facility] Last Admin: 02/24/18 08:25 Dose: 10 mg (hold) Escitalopram Oxalate (Lexapro) 20 mg PO DAILY [facility] Last Admin: 03/02/18 08:54 Dose: 20 mg Eszopiclone (Lunesta) 2 mg PO BEDTIME PRN PRN Reason: Insomnia Last Admin: 03/01/18 21:10 Dose: 2 mg Fluticasone Propionate (Flonase) 1 spray MEAGAN BID [facility] Last Admin: 03/02/18 08:56 Dose: 1 spray Furosemide (Lasix Tab) 40 mg PO QDAC [facility] Last Admin: 03/02/18 05:51 Dose: 40 mg Levothyroxine Sodium (Synthroid) 100 mcg PO QDAC [facility] Last Admin: 03/02/18 05:51 Dose: 100 mcg Losartan Potassium (Cozaar) 25 mg PO DAILY [facility] Last Admin: 03/02/18 08:53 Dose: 50 mg Metoprolol Succinate (Toprol Xl) 25 mg PO DAILY [facility] Last Admin: 03/02/18 08:54 Dose: 25 mg Potassium Chloride (K-Dur) 20 meq PO BIDWM [facility] Last Admin: 03/02/18 08:53 Dose: 20 meq Rosuvastatin Calcium (Crestor) 20 mg PO DAILY [facility] Last Admin: 02/24/18 08:25 Dose: 20 mg (hold) ALLERGIES No Known Drug Allergies Adverse Reaction (Verified 02/23/18 11:08) DISCONTINUED MEDICATIONS LISINOPRIL MEDICATIONS ON HOLD (WILL BE RESUMED THRU OFFICE) BING MCDONALD NEW PRESCRIPTIONS: WELLBUTRIN XL 150 MG TAKE DAILY KEFLEX 500 MG TAKE 1 TWICE DAILY LOSARTAN 25 MG TAKE 1 DAILY SMOKING: Not Applicable DISEASE SPECIFIC EDUCATION: Medications Activity Elevate legs when sitting LAB REVIEW: 03/02/18 04:30 03/02/18 04:30 03/02/18 04:30: Sodium 145, Potassium 3.3 L, Chloride 101, Carbon Dioxide 39 H, Anion Gap 8.3, BUN 25 H, Creatinine 0.71, Estimated GFR (MDRD) 81.00, BUN/ Creatinine Ratio 35.21, Glucose 157 H, Calcium 8.5, Total Bilirubin 0.6, AST 24 , ALT 61, Alkaline Phosphatase 78, Total Protein 4.3 L, Albumin 2.3 L, Globulin 2.0, Albumin/Globulin Ratio 1.15 03/02/18 04:30: WBC 9.76, RBC 4.04 L, Hgb 11.1 L, Hct 33.5 L, MCV 82.9, MCH 27.5 , MCHC 33.1, RDW Coeff of Bettye 13.7, Plt Count 95 L, Immature Gran % (Auto) 2.0, Neut % (Auto) 86.3, Lymph % (Auto) 6.5 L, [place] % (Auto) 5.1, Eos % (Auto) 0.0, Baso % (Auto) 0.1, Immature Gran # (Auto) 0.2, Neut # (Auto) 8.4 H, Lymph # ( Auto) 0.6, [place] # (Auto) 0.5, Eos # (Auto) 0.0, Baso # (Auto) 0.0 03/01/18 04:10: Transferrin 253 PLAN: Discharge home Diet: Regular as tolerated, no added salt Activity: Gradually resume as tolerated, elevate legs when sitting Use walker for added stability with ambulation An appointment is scheduled with Dr. Koenig on March 07 at 8:15 am Mrs. Pate is a Full Code Mrs. Pate is alert and oriented x 3. She is independent with activities of daily living, but is currently using a standard rolling walker for assistance with ambulation due to pain/osteoarthritis in the right hip and right knee. Meal intakes are good at 100%. No abdominal pain or nausea reported. No constipation reported, bowels twice yesterday. No pain or burning reported with urination, but patient reports a sense of urgency with urination. Jun Koenig MD
--- NOTE | 2018-03-02 13:05 | PN ---
DATE OF SERVICE: 03/01/18 SUBJECTIVE: 72 year old white female hospitalized with leg edema, shortness of breath and generalized weakness. The patient's problems are she was dehydrated and probably had UTI. The patient is feeling better in the morning hours she is better but then she gets worn out. Her depression seems to be a lot better with the combination of Lexapro and Wellbutrin. REVIEW OF SYSTEMS: CONSTITUTIONAL: No night sweats. No fatigue, malaise, lethargy. No fever or chills. HEENT: Eyes: No visual changes. No eye pain. No eye discharge. ENT: No runny nose. No epistaxis. No sinus pain. No sore throat. No odynophagia. No congestion. RESPIRATORY: No cough, no congestion. No hemoptysis. No shortness of breath. CARDIOVASCULAR: No angina symptoms. No CHF symptoms. No atypical chest pain for CAD. No palpitations. No orthopnea. GASTROINTESTINAL: No abdominal pain. No nausea or vomiting. No diarrhea or constipation. No hematemesis. No hematochezia. GENITOURINARY: No urgency. No frequency. No dysuria. No hematuria. No obstructive symptoms. No discharge. No pain. No significant abnormal bleeding. MUSCULOSKELETAL: No musculoskeletal pain; no joint swelling. Arthritic pain a lot better NEUROLOGICAL: No headache. No neck pain. No syncope. No seizures. No dizziness. PSYCHIATRIC: Not anxious. No depression. No suicidal thoughts. No homicidal thoughts. SKIN: No rash. No lesions. No wounds. ENDOCRINE: No unexplained weight loss. No weight gain. HEMATOLOGIC/LYMPHATIC: No anemia. No purpura. No petechiae. No prolonged or excessive bleeding. No palpable lymph nodes. PHYSICAL EXAMINATION: GENERAL: The patient is oriented to time, place and person. VITAL SIGNS: Temperature 98.4, pulse 65, respiratory rate 20, blood pressure 132/77 and pulse ox 95%. HEENT: Head normocephalic, atraumatic. Eyes: Extraocular muscles are intact. Pupils are equal, round and reactive to light and accommodation. Ears: No lesions. Nose appeared normal. Throat: No exudate or erythema. NECK: Supple. No JVD, no carotid bruit. No lymphadenopathy or thyromegaly. LUNGS: Decreased breath sounds but clear to auscultation. Percussion note normal. Chest symmetrical. HEART: S1, S2, no S3. No murmurs. No cyanosis or clubbing. No ascites. Pulses: Dorsalis pedis and posterior tibial pulses +1 to +2 both sides. ABDOMEN: Soft. Nontender. Bowel sounds active. No CVA tenderness. No mass felt. EXTREMITIES: Trace edema. Full range of motion of all extremities, equal. NEUROLOGIC: No focal deficit. Cranial nerves II through XII are grossly intact. No headache, no double vision or headache. SKIN: Not dry. Intact. Turgor - normal. LYMPHATIC: No palpable lymph nodes/no lymphedema. MUSCULOSKELETAL: Normal joints with no swelling. Muscle tone is normal. LABS: Hgb 11.8, hct 36, WBC 11,000 normal differential, creatinine 0.7, BUN 25, glucose 166 ASSESSMENT: 1. Shortness of breath seems to be combination of sedentary lifestyle and BMI of 35 along with her medical problems 2. Leg edema seems to be better 3. Depression which seems to be under control with no suicidal or homicidal tendency. She is on combination of Lexapro and Wellbutrin 4. Hypokalemia borderline seems to be better, will increase the Potassium to 20meq three times a day. PLAN: 1. Will do anemia profile 2. Discontinue Telemetry 3. Up and about 4. Discontinue Rocephin 5. Put her on Keflex 500mg twice a day 6. The patient very likely will be discharged tomorrow. TIME SPENT: More than 30 minutes. Plan and coordination of the patient's care discussed in the presence of nurse. THEODORE
--- NOTE | 2018-03-03 09:49 | DS ---
DATE OF SERVICE: 03/02/18 FINAL DIAGNOSIS: 1. Dyspnea 2. Leg edema 3. Generalized weakness 4. Chest pain 5. Acute diastolic CHF (02/13) 6. Urinary tract infection (history) 7. Dyslipidemia 8. Hypothyroid 9. Anemia 10.Depression 11.Vitamin B 12 deficiency 12.Osteoarthritis 13.Lumbar surgery LAST VITALS: Temperature 98.4, pulse 63, respiratory rate 18, blood pressure 110/54 and pulse ox 94%. DISCHARGE INSTRUCTIONS: Discharge home. An appointment is scheduled with Dr. Koenig on March 07 at 8: 15am. Mrs. Pate is a full code. MEDICATIONS AT DISCHARGE: Aspirin 325mg PO daily Wellbutrin 150mg PO daily Keflex 500mg PO Q 12 hours Zetia 10mg PO daily Lexapro 20mg PO daily Lunesta 2mg PO bedtime PRN Flonase 1 spray MEAGAN twice a day Lasix 40mg PO QDAC Synthroid 100mcg PO QDAC Cozaar 25mg PO daily Toprol Xl 25mg PO daily K-Dur 20meq PO twice a day Crestor 20mg PO daily ALLERGIES: No known drug allergies DISCONTINUED MEDICATIONS: Lisinopril MEDICATIONS ON HOLD (WILL BE RESUMED THRU OFFICE): Crestor Zetia NEW PRESCRIPTIONS: Wellbutrin XL 150mg take daily Keflex 500mg take one twice a day Losartan 25mg take one daily DIET INSTRUCTIONS: Regular as tolerated, no added salt ACTIVITY: Gradually resume as tolerated, elevate legs when sitting. Use walker for added stability with ambulation. SMOKING: N/A DISEASE SPECIFIC EDUCATION: Medications Activity Elevate legs when sitting HOSPITAL COURSE: 72 year old white female hospitalized with leg edema and shortness of breath and atypical chest pain. The patient had recent stress sestamibi at [place] nearly 4 weeks ago which was negative for ischemia. The patient's cardiac markers and EKG's were normal. The patient did not have any symptoms consistent with coronary insufficiency. She had a lot of stress from having to raise grandkids. Also the is sick. The patient is obese with sedentary lifestyle. The patient's leg edema had completely resolved. At the time of discharge she was found to be mildly depressed. Her Lexapro was continued and Wellbutrin was added. It seemed to be working for her. Her Lisinopril was discontinued and she was put on Cozaar 25mg. She was continued on her Lasix and Potassium supplements were given for hypokalemia. The patient's condition at the time of discharge stable. The patient is advised repeat stress sestamibi which she declined. Also offered her to go tertiary centers like [place] or [place] for her cardiac workup if she desires any further but I didn't see any indication for it but she declined. Weight loss diet discussed with the patient. The patient had no suicidal or homicidal ideas or tendency. CONDITION: Stable. TIME SPENT: More than 60 minutes. THEODORE
--- NOTE | 2018-03-03 09:50 | PN ---
02/23/18: Level 5 02/24/18: Intermediate 02/25/18: Intermediate 02/26/18: Intermediate 02/27/18: Intermediate 02/28/18: Intermediate 03/01/18: Intermediate 03/02/18: D as in discharge MTDD
== END 2018-03-02 14:05 | disposition home or self-care (01) | DRG 204 ==
LOC: MEDSURG A 09:40
PROVIDERS: ADMIT Internal Medicine; ATTEND Internal Medicine
DX: R06.00 Dyspnea, unspecified (principal); I50.31 Acute diastolic (congestive) heart failure; R60.0 Localized edema; R53.1 Weakness; E86.0 Dehydration; E87.6 Hypokalemia; R07.9 Chest pain, unspecified; E78.5 Hyperlipidemia, unspecified; E03.9 Hypothyroidism, unspecified; D64.9 Anemia, unspecified; F32.9 Major depressive disorder, single episode, unspecified; E53.8 Deficiency of other specified B group vitamins; M19.012 Primary osteoarthritis, left shoulder; R20.0 Anesthesia of skin; M17.11 Unilateral primary osteoarthritis, right knee; Z87.440 Personal history of urinary (tract) infections; Z79.899 Other long term (current) drug therapy; Z68.34 Body mass index [BMI] 34.0-34.9, adult; Z72.3 Lack of physical exercise
CPT/HCPCS: 36415; 80053; 81001; 82550; 82607; 82728; 82746; 82803; 83540; 83550; 84436; 84443; 84466; 84484; 85025; 85045; 93005; 93010

== ENCOUNTER 2018-03-10 08:30 | Outpatient (CLI) | END 2018-03-10 08:31 | disposition home or self-care (01) | LOC: LAB 08:30 | PROVIDERS: ATTEND Internal Medicine | DX: E87.6 Hypokalemia (principal) | CPT/HCPCS: 36415; 80053 ==

== ENCOUNTER 2018-03-15 11:02 | Observation (INO) ==
[2018-03-15] MEDS ORDERED: DEXTROSE 5%-1/2NS IV SOLUTION 1,000 ML IV SCH (12:00)
[2018-03-15 12:30] VITALS: BMI 32.1
[2018-03-15] MEDS ORDERED: FLAGYL 500 MG/100 ML 500 MG in PREMIX 100 ML NS 1 BAG IV SCH (13:00)
--- NOTE | 2018-03-15 14:45 | DI ---
EXAM: Two views of the chest. History: Congestive heart failure. Comparison: Chest radiograph 02/23/2018 Findings: Heart size is upper limits of normal. Left basilar subsegmental atelectasis. No apprecia ble pleural fluid and no pneumothorax. No acute osseous abnormalities. Atherosclerotic vascular calc ifications. Impression: 1. No evidence for congestive heart failure. 2. Left basilar subsegmental atelectasis.
--- NOTE | 2018-03-15 15:01 | CT ---
EXAM: CT of the abdomen pelvis with contrast History: Left lower quadrant abdominal pain. Comparison: CT abdomen 05/22/2010 Technique: Multiplanar CT images through the abdomen pelvis were obtained following administration o f IV contrast Findings: Lung bases are clear. No acute osseous abnormalities. Cholelithiasis. Calcified granulomas are seen within the spleen. Small bilateral renal cysts measur ing up to 1.5 cm on the right and 0.6 cm on the left. Adrenal glands are unremarkable. No abnormali ty of the pancreas. There are multiple hypoattenuating liver lesions seen within both the left and r ight hepatic lobes with the largest in the right hepatic lobe measuring 2.8 cm and the largest in the left hepatic lobe measuring 2.4 cm. Bladder is not well distended. No focal bladder wall thickenin g. Colonic diverticulosis. There is inflammation seen adjacent to the proximal sigmoid colon with s mall amount of localized extraluminal air measuring about 3 cm . There is a small adjacent 2 cm marilee ection of fluid. The uterus is atrophic. Impression: 1. Perforated sigmoid diverticulitis with localized collection of extraluminal air and small 2 cm ear ly abscess 2. Multiple ill-defined hypoattenuating liver lesions highly suspicious for metastasis versus multif ocal hepatocellular carcinoma. 3. Colonic diverticulosis. 4. Bilateral renal cysts. Critical results communicated to Marta WIGGINS at 2:55 p.m. 03/15/2018
[2018-03-15] MEDS ORDERED: INVANZ 1 GM in SODIUM CHLORIDE 50 ML IV STA (15:07)
--- NOTE | 2018-03-15 15:31 | HP ---
DATE OF SERVICE: 03/15/18 REASON FOR HOSPITALIZATION/ HISTORY OF PRESENT ILLNESS: Abdominal pain, left lower quadrant x 3 days. No vomiting. Feels weak. No symptoms of CHF/CAD. Sweating last night. PAST MEDICAL HISTORY: Dyslipidemia Hypothyroidism Anemia Depression Vitamin B12 deficiency CHF PAST SURGICAL HISTORY: Appendix Breast reduction Tummy tuck Ectopic -ovary removed Stent 2012 Back surgery REVIEW OF SYSTEMS: CONSTITUTIONAL: Fever last night, Fatigue. HEENT: No sinus drainage, no sore throat. RESPIRATORY: No cough, no congestion. CARDIOVASCULAR: No atypical chest pain for coronary artery disease. No angina , CHF symptoms, palpitations or shortness of breath. GASTROINTESTINAL: No melena. Abdominal pain. No GERD. GENITOURINARY: No hematuria, no prostatism, no polyuria. MANAGER MEDIA RELATIONS: No blackout, Dizziness, no headache, no double vision. MUSCULOSKELETAL: No osteoarthritis pain, no joint swelling. ENDOCRINE: Weight loss; 4.5 pounds in 2 weeks, no weight gain. SKIN: Not dry, no rash. PSYCHIATRIC: Anxious, no depression, no suicidal thoughts, no homicidal thoughts. SOCIAL HISTORY: Marital Status: . Alcohol Usage: No. Tobacco Usage: No. FAMILY HISTORY: Father Mother Brother 1/2 brother Sister 0 MEDICATIONS: K-Tab 20meq PO three times a day with food Wellbutrin 150mg PO daily Flonase twice daily Losartan 25mg PO daily Lasix 40mg PO daily Synthroid 100mg PO daily Toprol XL 25mg PO daily Lexapro 20mg Po daily Lunesta 2mg PO daily Betamethasone apply thin layer to the affected area Aspirin 325mg PO daily ALLERGIES: No known allergies. PHYSICAL EXAMINATION: V/S: Pulse 72, blood pressure 132/80, temperature 98.2 and pulse ox 98%. Height 5'0, weight 164.4 and BMI 32.1. GENERAL APPEARANCE: Oriented times three. Pallor positive. Dry Skin. HEENT: Normal. NECK: No JVP, no bruits. RESPIRATORY: Lungs are clear. CARDIOVASCULAR: S1, S2, no S3, no murmurs. No cyanosis, clubbing. No ascites. GI/ABDOMEN: Tenderness. Bowel sounds are active. Right lower quadrant and left lower quadrant. Rebound positive. EXTREMITIES: edema, pulses +1, equal. MANAGER MEDIA RELATIONS: Deep tendon reflexes, sensory, motor and gait all normal. RECTAL: [facility] 2010/PELVIC: Dr. [place] advised yearly, 04-10 [facility] mammogram. ASSESSMENT: 1. Left lower quadrant pain, acute diverticulosis 2. History of acute diastolic CHF 02-11 3. CAD status post stent 2011 4. Dyslipidemia 5. Hypothyroidism 6. Anemia 7. Depression 8. Low back surgery 9. Vitamin B12 deficiency PLAN: 1. Admit observation 2. 1000 CC D5 1/2 normal saline 3. Full liquid 4. CT scan of abdomen and pelvis with contrast today 5. Flagyl 500mg IV piggy back Q 8 hours 6. CBC and CMP today and in AM 7. EKG today 8. Telemetry times 48 hours 9. X-ray chest today 10.Continue all home medications 11.Amylase and Lipase today TIME SPENT: More than 70 minutes. MTDD
[2018-03-15] MEDS ORDERED: INVANZ ONE (15:38)
--- NOTE | 2018-03-15 15:44 | DS ---
DATE OF SERVICE: 03/15/18 FINAL DIAGNOSIS: 1. Acute perforated sigmoid diverticulitis with possibility of two small 2cm early abscesses. 2. History of diastolic congestive heart failure 3. CAD status post stent, 2011 4. Dyslipidemia 5. Hypothyroidism 6. Anemia 7. Depression 8. Lumbar surgery 9. Vitamin B12 deficiency DISCHARGE INSTRUCTIONS: Transfer to [facility], [place]. MEDICATIONS AT DISCHARGE: K-tab 20meq twice a day Wellbutrin XL 300mg once a day Lexapro 20mg PO daily Losartan 25mg PO daily Lasix 40mg PO daily Synthroid 100mcg PO daily Lunesta 2mg at bedtime Coated aspirin 325mg PO daily MEDICATIONS GIVEN DURING THIS HOSPITALIZATION: Flagyl 500mg IV Q 8hours Ertapenem 1 gram IV one dose IV fluids 1000cc D5 1/2 normal saline every 12 hourly DIET INSTRUCTIONS: NPO SMOKING: Never smoker DISEASE SPECIFIC EDUCATION: Transfer LABS: CT scan showed perforated sigmoid diverticulitis with localized collection of extraluminal air and small 2cm early abscess, multiple ill-defined hypoattenuating liver lesions highly suspicious for metastasis verus multifocal hepatocellular carcinoma, colonic diverticulosis. Chest x-ray showed basilar subsegmental atelectasis. The patient's CMP was hypoalbuminemia otherwise normal liver enzymes. Glucose 150, creatinine 0.5, BUN 19, potassium 3.2. WBC 9, 000 normal differential. HOSPITAL COURSE: 72 year old white female was seen in the office today with left lower quadrant pain. The patient clinically had acute diverticulitis which was confirmed with the CT scan findings with perforation. The patient has some signs of peritonitis clinically with tenderness in both lower quadrants. The patient's CT scan of the abdomen also shows possibility of hepatocellular carcinoma of the liver which is to me is questionable. The patient may have fatty liver with liver cirrhosis. In any case the patient has been given Ertapenem 1 gram and Flagyl 500mg IV Q 8 hours with IV fluids. She has been kept NPO so far. The patient's case will be discussed with hospitalist at [facility], [place] and will be transferred. Case discussed with the family including the patient. ADDENDUM: The patient was hospital on 02/13/18 at [facility], [place] with acute diastolic congestive heart failure. CONDITION: Stable. TIME SPENT: More than 60 minutes. ADDENDUM: The patient was transferred to [place] because of acute diverticulitis with perforation. The patient had colonoscopy appointment with Dr. aMldonado at [facility] nearly months ago and she didn't keep it. Previous occasions the patient had declined Mammogram and colonoscopy. Had colonoscopy done more than 10 years ago. THEODORE
[2018-03-15 15:48] VITALS: BP 130/72; TEMP 97.7
== END 2018-03-15 16:45 | disposition short-term general hospital (02) ==
LOC: MEDSURG A 11:02
PROVIDERS: ADMIT Internal Medicine; ATTEND Internal Medicine
DX: R10.32 Left lower quadrant pain (principal); K57.92 Diverticulitis of intestine, part unspecified, without perforation or abscess without bleeding; D64.9 Anemia, unspecified; E78.5 Hyperlipidemia, unspecified; E03.9 Hypothyroidism, unspecified; F32.9 Major depressive disorder, single episode, unspecified; D51.9 Vitamin B12 deficiency anemia, unspecified
CPT/HCPCS: 36415; 80053; 82150; 83690; 85025; 93005; 93010; 96361; 96365; 96367; 99236

== ENCOUNTER 2018-03-15 16:54 | Outpatient (CLI) | payer OTHER ==
[2018-03-15 12:30] VITALS: BMI 32.1
== END 2018-03-15 17:18 | disposition short-term general hospital (02) ==
LOC: AMBL 16:54
PROVIDERS: ATTEND Emergency Medicine
DX: K57.20 Diverticulitis of large intestine with perforation and abscess without bleeding (principal)